=== PATIENT | female | born 1975 | race Two or more races ===

== ENCOUNTER 2017-05-27 22:14 | Emergency (ER) | payer SELFPAY ==
[~2017-05-27] VITALS: Ht 160 cm; Wt 77.1 kg
[2017-05-27 22:40] VITALS: BP 106/66
== END 2017-05-28 02:05 | disposition left against medical advice (07) ==
LOC: EDBD 22:14 → ER 22:23
DX: M79.605 Pain in left leg (principal); M79.604 Pain in right leg; Z53.21 Procedure and treatment not carried out due to patient leaving prior to being seen by health care provider